=== PATIENT | male | born 1970 | race Caucasian/White ===

== ENCOUNTER 2017-08-23 06:41 | Day surgery (SDC) | payer BC ==
[~2017-08-23 06:41] MED LIST: Lactated Ringers 1,000 ML IV SCH; ceFAZolin 2 GM in Premix Bag 1 BAG IV SCH
[2017-08-23] MEDS ORDERED: ceFAZolin 1 GM Vial ONE (07:20)
[2017-08-23] MEDS ORDERED: Bupivacaine 0.5% 10 ML SDV ONE (07:20)
--- NOTE | 2017-08-23 07:26 | PCM.PREANE ---
Preanesthetic Assessment - Anesthesia/Transfusion/Family Hx Anesthesia History: Prior Anesthesia Without Reaction Family History of Anesthesia Reaction: No Transfusion History: No Prior Transfusion(s) Intubation History: Unknown - Review of Systems General: No Symptoms Pulmonary: No Symptoms Cardiovascular: No Symptoms Gastrointestinal: No Symptoms Neurological: No Symptoms Other: Reports: None - Physical Assessment O2 Sat by Pulse Oximetry: 96 Respiratory Rate: 16 Vital Signs: Last Vital Signs Temp 36 C 08/23/17 06:50 Pulse 76 08/23/17 06:50 Resp 16 08/23/17 06:50 BP 139/94 H 08/23/17 06:50 Pulse Ox 96 08/23/17 06:50 Height: 1.78 m Weight: 114.305 kg ASA Class: 2 Mental Status: Alert & Oriented x3 Airway Class: Mallampati = 2 Dentition: Reports: Normal Dentition Thyro-Mental Finger Breadths: 3 Mouth Opening Finger Breadths: 2 ROM/Head Extension: Full Lungs: Clear to Auscultation, Normal Respiratory Effort Cardiovascular: Regular Rate, Regular Rhythm - Allergies Allergies/Adverse Reactions: Allergies Allergy/AdvReac Type Severity Reaction Status Date / Time No Known Allergies Allergy Verified 08/18/17 12:55 - Blood Blood Available: No - Anesthesia Plan Pre-Op Medication Ordered: None - Acknowledgements Anesthesia Type Planned: General Anesthesia Pt an Appropriate Candidate for the Planned Anesthesia: Yes Alternatives and Risks of Anesthesia Discussed w Pt/Guardian: Yes Pt/Guardian Understands and Agrees with Anesthesia Plan: Yes PreAnesthesia Questionnaire HEENT History: Reports: None Cardiovascular History: Reports: Other (See Below) (h/o increased blood pressure ) Neurological History: Reports: Migraines Endocrine/Metabolic History: Reports: Obesity/BMI 30+ - Past Surgical History Head Surgeries/Procedures: Reports: None HEENT Surgical History: Reports: Oral Surgery Other HEENT Surgeries/Procedures: wisdom teeth extraction - SUBSTANCE USE Smoking Status *Q: Former Smoker Tobacco Use Within Last Twelve Months: No Recreational Drug Use History: No - HOME MEDS Home Medications: Home Meds Ibuprofen 2 tab PO ASDIRECTED PRN 08/18/17 [History] - CURRENT (IN HOUSE) MEDS Current Meds: Current Medications Cefazolin Sodium/Dextrose 2 gm (/ Premix) 50 mls @ 100 mls/hr IV ONETIME MINOO Lactated Ringer's (Ringers, Lactated) 1,000 mls @ 125 mls/hr IV ASDIRECTED [facility] Last Admin: 08/23/17 06:51 Dose: 125 mls/hr Discontinued Medications Bupivacaine HCl (Sensorcaine-Mpf 0.5%) Confirm Administered Dose 10 ml .ROUTE .STK-MED ONE Stop: 08/23/17 07:21 Cefazolin Sodium (Ancef) Confirm Administered Dose 1 gm .ROUTE .STK-MED ONE Stop: 08/23/17 07:21
[2017-08-23] MEDS ORDERED: Propofol 200 MG/20 ML SDV ONE (07:33)
[2017-08-23] MEDS ORDERED: fentaNYL 100 MCG/2 ML SDV ONE (07:33)
[2017-08-23] MEDS ORDERED: Midazolam 1 MG/ML 2 ML SDV ONE (07:33)
[2017-08-23] MEDS ORDERED: Ondansetron 4 MG/2 ML SDV ONE (07:33)
[2017-08-23] MEDS ORDERED: HYDROmorphone 2 MG/ML SDV ONE (07:33)
[2017-08-23] MEDS ORDERED: ceFAZolin/Dextrose,Iso-Osmotic 2 GM/50 ML Duplex Bag IV ONE ×2 (07:53)
[2017-08-23] MEDS ORDERED: Ketorolac 30 MG/ML SDV ONE (08:07)
[2017-08-23] MEDS ORDERED: ePHEDrine 50 MG/ML SDV ONE (08:33)
[2017-08-23] MEDS ORDERED: fentaNYL 100 MCG/2 ML SDV IVPUSH PRN (08:36)
[2017-08-23] MEDS ORDERED: Acetaminophen/HYDROcodone 325-5 MG Tab PO PRN (08:55)
[2017-08-23] MEDS ORDERED: Ondansetron 4 MG/2 ML SDV IVPUSH PRN (08:55)
[2017-08-23] MEDS ORDERED: Morphine 10 MG/ML Syringe IVPUSH PRN (08:55)
[2017-08-23] MEDS ORDERED: Lactated Ringers 1,000 ML IV SCH (09:00)
--- NOTE | 2017-08-23 09:05 | PCM.OPNOTE ---
- General Post-Op/Procedure Note Date of Surgery/Procedure: 08/23/17 Operative Procedure(s): Repair incarcerated ventral hernia with 4.3 cm Ventralex mesh Pre Op Diagnosis: Incarcerated ventral hernia Post-Op Diagnosis: Same Anesthesia Technique: General LMA (ASA II) Primary Surgeon: Garett Strickland Fluid Replacement, Intraop: 1,500 EBL in mLs: 5 Condition: Good Free Text/Narrative:: Dictation [id number] CPT CODE 73870/[id number]
--- NOTE | 2017-08-23 09:32 | PCM.POSTAN ---
POST ANESTHESIA ASSESSMENT - MENTAL STATUS Mental Status: Alert, Oriented - RESPIRATORY Respiratory Status: Respiratory Rate WNL, Airway Patent, O2 Saturation Stable - CARDIOVASCULAR CV Status: Pulse Rate WNL, Blood Pressure Stable - GASTROINTESTINAL GI Status: No Symptoms - PAIN Pain Score: 5 - POST OP HYDRATION Hydration Status: Adequate & Stable - OBSERVATIONS Free Text/Narrative:: no anesthesia problems
--- NOTE | 2017-08-23 13:06 | OR ---
SURGEON: Garett Strickland M.D. DATE OF PROCEDURE: 08/23/2017 OPERATION PERFORMED: Repair of incarcerated ventral hernia with 4.3 cm Ventralex mesh. ANESTHESIA: General LMA ASA CLASSIFICATION: II. PREOPERATIVE DIAGNOSIS: Incarcerated ventral hernia. POSTOPERATIVE DIAGNOSIS: Incarcerated ventral hernia. ESTIMATED BLOOD LOSS: 5 mL. INTRAOPERATIVE FLUID REPLACEMENT: 1500 mL of crystalloid. DESCRIPTION OF PROCEDURE: The patient was taken to the operating room and placed on the operating table in the supine position. Time-out was called for appropriate identification of the patient and procedure. Thigh-high TEDs and sequential compression boots were placed. Following satisfactory attainment of general anesthesia with placement of an LMA, the abdomen was prepped with DuraPrep solution and sterile drapes were applied. The skin just to the left of the umbilicus was infiltrated with 10 mL of 0.5% Marcaine solution. The skin incision was made and deepened through the subcutaneous tissue obtaining hemostasis with the use of electrocautery. Dissection was carried down to the incarcerated hernia sac and using sharp dissection, the hernia sac was circumferentially dissected away from the fascia. Care was taken not to enter the sac. Once this was circumferentially dissected, the hernia sac and contents were able to be reduced. A 4.3 cm Ventralex mesh was brought to the operating table and soaked in 1% Ancef solution. This was placed in an underlay fashion and secured with interrupted horizontal mattress 0 Ethibond sutures. All sutures were placed under direct vision and held with hemostats until the final suture had been placed. All sutures were tied. The patient was given a Valsalva maneuver to 30 cm of water and the repair was solid. The fascia over the mesh was then reapproximated with interrupted 0 Ethibond sutures and again secured. The wound was irrigated with 1% Ancef solution. The subcutaneous tissue was closed with running 3-0 Polysorb and the skin with subcuticular 4-0 Monocryl. Steri-Strips were placed over the skin, which was dressed with a sterile Tegaderm pad. Sponge, needle, and instrument counts were all correct. The patient tolerated the procedure well. Following emergence from anesthesia and extubation, he was taken to recovery room in stable condition. NOHEMI / SYED /[id number]
== END 2017-08-23 13:04 | disposition home or self-care (01) ==
LOC: MW.SDS 06:41
PROVIDERS: ATTEND Surgery
DX: K43.6 Other and unspecified ventral hernia with obstruction, without gangrene (principal); G43.909 Migraine, unspecified, not intractable, without status migrainosus; I10 Essential (primary) hypertension; E66.9 Obesity, unspecified; Z68.36 Body mass index [BMI] 36.0-36.9, adult; Z87.891 Personal history of nicotine dependence; Z82.3 Family history of stroke; Z83.3 Family history of diabetes mellitus; Z98.890 Other specified postprocedural states
CPT/HCPCS: 49561; 49568; C1781; J0690; J1170; J1885; J2250; J2405; J3010; J7120; 00830; J2704